=== PATIENT | male | born 1975 | race Caucasian/White ===

== ENCOUNTER 2019-12-02 08:42 | Emergency (ER) | payer SELFPAY ==
[2019-12-02 08:51] VITALS: BP 156/99
--- NOTE | 2019-12-02 09:23 | XRAY Report ---
Reason: glf, wrist pain swelling Procedure Date: 12/02/2019 Accession Number: [id number] / [id number] Procedure: XR - Wrist 4 View RT CPT Code: Final Report FULL RESULT: EXAM: RIGHT WRIST RADIOGRAPHY EXAM DATE: 12/02/2019 09:00 AM. CLINICAL HISTORY: Ground level fall, wrist pain, swelling. COMPARISON: None. TECHNIQUE: 3 views. FINDINGS: Bones: There is a screw transfixing a scaphoid waist fracture to the long axis of the scaphoid. Lucency surrounds a screw. On the sagittal images, there is "hump back" deformity. Loose bodies are also seen in the dorsal aspect of the intercarpal joint. No acute fractures. Proximal aspect of a compression plate seen at the dorsal aspect of the second metacarpal. Joints: Normal. No subluxations. Soft Tissues: Normal. No soft tissue swelling. IMPRESSION: 1. No acute fractures. 2. Previous ORIF scaphoid waist fracture, loosening around the screw. "Hump back" deformity is suspected on the lateral image. This may also indicate some motion. 3. Several small loose bodies seen dorsally at the intercarpal joint. RADIA
--- NOTE | 2019-12-02 09:25 | ED Physician Documentation ---
PD HPI UPPER EXT INJURY - Stated complaint Stated Complaint: R WRIST INJURY - Chief complaint Chief Complaint: Ext Problem - History obtained from History obtained from: Patient - History of Present Illness Location: Right, Wrist Type of injury: Fall (he says slipped and fell on wet ground last night, catching himself with right wrist/hand. Pain at ulnar side of dorsal wrist. Denies other injury. Prior navicular fracture with surgery about 14 years ago, with good use of wrist.) Timing - onset: Last night Timing - details: Abrupt onset, Still present Improved by: Rest Worsened by: Moving, Palpating (dorsal ulnar side) Associated symptoms: Swelling. No: Weakness, Numbness Similar symptoms before: Has not had sx before Review of Systems Skin: denies: Abrasion (s), Laceration (s) Neurologic: denies: Focal weakness, Numbness PD PAST MEDICAL HISTORY - Past Medical History Musculoskeletal: Other (prior wrist surgury navicular bone. ) - Present Medications Home Medications: Ambulatory Orders Medication Instructions Recorded Confirmed No Known Home Medications 12/02/19 12/02/19 - Allergies Allergies/Adverse Reactions: Allergies Allergy/AdvReac Type Severity Reaction Status Date / Time No Known Drug Allergies Allergy Verified 12/02/19 08:51 PD ED PE NORMAL - Vitals Vital signs reviewed: Yes - General General: Alert and oriented X 3, No acute distress, Well developed/nourished - Derm Derm: Normal color, Warm and dry - Extremities Extremities: Other (tender dorsally over ulnar side wrist. Not tender at snuffbox. ) - Neuro Neuro: Alert and oriented X 3, No motor deficit, No sensory deficit Results - Vitals Vitals: Vital Signs - 24 hr 12/02/19 08:48 Temperature 36 C L Heart Rate 78 Respiratory 18 Rate Blood Pressure 156/99 H O2 Saturation 100 Oxygen O2 Source Room air - Rads (name of study) right wrist xray Radiology: Prelim report reviewed (no new fractures. Prior surgical repair of navicular. Some lucency around screw suggesting some loosening over time. ), See rad report PD MEDICAL DECISION MAKING - ED course Complexity details: reviewed results, considered differential, d/w patient Departure - Departure Disposition: 01 Home, Self Care Clinical Impression: Right wrist sprain Qualifiers: Encounter type: initial encounter Qualified Code(s): S63.501A - Unspecified sprain of right wrist, initial encounter Condition: Stable Record reviewed to determine appropriate education?: Yes Instructions: ED Sprain Wrist Follow-Up: German iRos MD [Provider Admit Priv/Credential] - Comments: Ibuprofen or naproxen as needed for pain and inflammation for several days to week. Add Tylenol if needed. Ice elevate and rest the the wrist often to reduce swelling. Use a wrist splint for comfort and protection on range of motion over the next 7 to 10 days during activity. Recheck if not fully better over the next week or so. Discharge Date/Time: 12/02/19 10:40
[2019-12-02] MEDS ORDERED: ACETAMINOPHEN 325 MG TABLET PO STA (09:41)
[2019-12-02] MEDS ORDERED: IBUPROFEN 600 MG TABLET PO STA (09:41)
== END 2019-12-02 10:40 | disposition home or self-care (01) ==
LOC: ED 08:42
DX: S63.501A Unspecified sprain of right wrist, initial encounter (principal); W01.0XXA Fall on same level from slipping, tripping and stumbling without subsequent striking against object, initial encounter
CPT/HCPCS: 73110; 99282; 99283; A9270

== ENCOUNTER 2021-05-05 12:23 | Emergency (ER) | payer SELFPAY ==
[2021-05-05 12:42] VITALS: BP 181/103
[2021-05-05] MEDS ORDERED: CHERRY SYRUP 10 ML UDC PO ONE (15:10)
[2021-05-05] MEDS ORDERED: DEXAMETHASONE 10 MG/ML VIAL PO STA (15:10)
[2021-05-05] MEDS ORDERED: KETOROLAC 60 MG/2 ML VIAL IM STA (15:10)
--- NOTE | 2021-05-05 15:15 | ED Physician Documentation ---
PD HPI UPPER EXT INJURY - Stated complaint Stated Complaint: L SHOULDER PX - Chief complaint Chief Complaint: Ext Problem - History obtained from History obtained from: Patient, Family - History of Present Illness Location: Left, Shoulder Type of injury: Other (over use) Where injury occurred: Home Timing - onset: How many weeks ago (2) Timing - duration: Days (2) Timing - details: Gradual onset, Still present Improved by: Rest, Immobilization Worsened by: Moving, Palpating Associated symptoms: No: Weakness, Numbness, Tingling, Swelling Similar symptoms before: No diagnosis Recently seen: Not recently seen - Additonal information Additional information: 45-year-old male who is always had some problem with his left shoulder after a weightlifting injury a number of years ago has usually worked hard jobs he is muscular and has not had an issue with persistent pain in his shoulder. 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 He does a lot of lifting. Over the past three days he has experienced worsening pain and inability to move his arm without pain. He does not have fever he does not have injury specifically. Review of Systems Constitutional: denies: Fever Ears: denies: Ear pain Nose: denies: Congestion Throat: denies: Sore throat Respiratory: denies: Cough GI: denies: Nausea : denies: Dysuria Skin: denies: Rash Musculoskeletal: reports: Joint pain. denies: Neck pain, Back pain, Extremity pain Neurologic: denies: Generalized weakness, Focal weakness, Numbness PD PAST MEDICAL HISTORY - Past Medical History Musculoskeletal: Other (prior wrist surgury navicular bone. ) - Present Medications Home Medications: Ambulatory Orders Medication Instructions Recorded Confirmed HYDROcod/ACETAM 5/325 [[facility] 5/325] 1 - 2 tablet PO Q6H PRN #14 tablet 05/05/21 - Allergies Allergies/Adverse Reactions: Allergies Allergy/AdvReac Type Severity Reaction Status Date / Time No Known Drug Allergies Allergy Verified 05/05/21 12:42 - Social History Does the pt smoke?: No Smoking Status: Never smoker PD ED PE NORMAL - Vitals Vital signs reviewed: Yes (hypertensive ) - General General: Alert and oriented X 3, No acute distress, Well developed/nourished - HEENT HEENT: Atraumatic, PERRL, EOMI - Neck Neck: Supple, no meningeal sign, No bony TTP - Respiratory Respiratory: No respiratory distress - Derm Derm: Normal color, Warm and dry, No rash - Extremities Extremities: No deformity, No edema, Other (There is mild tenderness to the left anterior deltoid without obvious swelling or joint effusion. There is reduced ROM secondary to pain. 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, No motor deficit, No sensory deficit, Normal speech Eye Opening: Spontaneous Motor: Obeys Commands Verbal: Oriented GCS Score: 15 - Psych Psych: Normal mood, Normal affect Results - Vitals Vitals: Vital Signs - 24 hr 05/05/21 12:37 Temperature 37.1 C Heart Rate 68 Respiratory 16 Rate Blood Pressure 181/103 H O2 Saturation 98 Oxygen O2 Source Room air - Rads (name of study) shoulder L Radiology: Prelim report reviewed (Impression: No evidence of acute bony abnormality of left shoulder.), EMP read indepedently, See rad report PD MEDICAL DECISION MAKING - ED course Complexity details: reviewed results, re-evaluated patient, considered differential, d/w patient, d/w family ED course: 45-year-old male with an overuse injury to his left shoulder likely has a bursitis .He is treated here in the emergency department with dexamethasone zone and Toradol he is placed into a sling and will have a follow-up with orthopedics. Departure - Departure Disposition: 01 Home, Self Care Clinical Impression: Bursitis of left shoulder Condition: Stable Instructions: ED Bursitis Follow-Up: Jose Guadalupe Baugh MD [Provider Admit Priv/Credential] - Prescriptions: HYDROcod/ACETAM 5/325 [[facility] 5/325] 1 - 2 tablet PO Q6H PRN #14 tablet PRN Reason: Pain
--- NOTE | 2021-05-05 15:48 | XRAY Report ---
PROCEDURE: Shoulder 3 View LT INDICATIONS: pain reduced ROM TECHNIQUE: 3 views of the shoulder were acquired. COMPARISON: None. FINDINGS: Bones: No fractures or dislocations. No suspicious bony lesions. Visualized ribs appear intact. Soft tissues: No suspicious soft tissue calcifications. IMPRESSION: No evidence acute bony abnormality of the left shoulder. If clinical suspicion and/or symptoms persist, further assessment with repeat plain films or advanced imaging (e.g., CT, MRI, or bone scan) may be helpful for further assessment. Reviewed by: Alexsander Camacho MD on 05/05/2021 2:47 PM TOM Approved by: Alexsander Camacho MD on 05/05/2021 2:47 PM TOM Station ID: [id number]
== END 2021-05-05 16:29 | disposition home or self-care (01) ==
LOC: ED 12:23
DX: M75.02 Adhesive capsulitis of left shoulder (principal)
CPT/HCPCS: 73030; 96372; 99283; 99284; A9270